=== PATIENT | male | born 1960 | race Caucasian/White ===

== ENCOUNTER 2017-05-22 13:47 | Emergency (ER) | payer MEDICARE ==
[~2017-05-22] VITALS: Ht 180.3 cm; Wt 100.0 kg
[2017-05-22 13:48] VITALS: BP 176/98; PULSE 86; RESP 16; TEMP 98.6; O2SAT 97
--- NOTE | 2017-05-22 14:22 | PD ---
HPI Chief Complaint: Cold / Flu Symptoms Time Seen by Provider: 14:19 Travel History International Travel<30 days: No Contact w/Intl Traveler<30days: No Traveled to known affect area: No History of Present Illness HPI 57-year-old male recently arriving here in [place] 2 weeks ago from [facility], presents the emergency department with increasing congestion, wheeze, and cough. Cold approximately 2 weeks ago for which he was treated with azithromycin with some improvement, however symptoms have worsened since last Tuesday. Patient denies fever but has had chills. His cough is somewhat productive, and worse at night. He denies significant sinus tenderness or pain. No significant sore throat. Patient has no history of COPD or asthma. Patient does however have a history of pneumonia in the past, and the need for albuterol when he was sick in the past. Appetite is normal. No abdominal complaints. Known drug allergies. PFSH Past Medical History Cardiovascular Problems: Yes Social History Alcohol Use: Yes Tobacco Use: No Substance Use: No Allergies-Medications (Allergen,Severity, Reaction): Coded Allergies: No Known Allergies (Unverified , 05/22/17) Reported Meds & Prescriptions Reported Meds & Active Scripts Active Ventolin Hfa 18 GM Inh (Albuterol Sulfate) 90 Mcg/Act Aer 2 Puff INH Q4-6H PRN Prednisone 20 Mg Tab 20 Mg PO BID 5 Days Levaquin (Levofloxacin) 750 Mg Tablet 750 Mg PO DAILY 10 Days Reported Percocet (Oxycodone-Acetaminophen) 10-325 mg Tab 1 Tab PO Q6H PRN Atorvastatin (Atorvastatin Calcium) 10 Mg Tab 10 Mg PO HS Gabapentin 300 Mg Cap 300 Mg PO TID Flexeril (Cyclobenzaprine HCl) 10 Mg Tab 10 Mg PO TID PRN Lisinopril-Hctz 20-12.5 mg Tab (Lisinopril/Hydrochlorothiazide) 20 Mg-12.5 Mg Tablet 1 Tab PO DAILY Review of Systems Except as stated in HPI: all other systems reviewed are Neg General / Constitutional: Positive: Chills, No: Fever Eyes: No: Diploplia, Blurred Vision, Photophobia, Drainage, Redness, Foreign Body Sensation, Pain, Tearing, Blind Spots, Visual changes, Blindness HENT: Positive: Rhinitis, Rhinorrhea, Congestion, No: Headaches, Vertigo, Lightheadedness, Sore Throat, Dental Difficulties, Earache Cardiovascular: No: Chest Pain or Discomfort Respiratory: Positive: Cough, Shortness of Breath, Wheezing, No: Sneezing, Orthopnea, Hemoptysis, Stridor, Night Sweats, Pleuritic Pain Gastrointestinal: No: Nausea, Vomiting, Diarrhea, Abdominal Pain Genitourinary: No: Dysuria Musculoskeletal: No: Pain Skin: No Rash Neurologic: No: Weakness Psychiatric: No: Depression Endocrine: No: Polydipsia Hematologic/Lymphatic: No: Easy Bruising Physical Exam Narrative GENERAL: Patient appears in no obvious distress. SKIN: Warm and dry. Normal color. Normal turgor. HEAD: Atraumatic. Normocephalic. EYES: Pupils equal and round. No scleral icterus. No injection or drainage. ENT: No nasal bleeding or discharge. Mucous membranes pink and moist. NECK: Trachea midline. No JVD. CARDIOVASCULAR: Regular rate and rhythm. RESPIRATORY: No accessory muscle use. Diffuse wheezes and rales to auscultation. Breath sounds equal bilaterally. GASTROINTESTINAL: Abdomen soft, non-tender, nondistended. Hepatic and splenic margins not palpable. MUSCULOSKELETAL: Extremities without clubbing, cyanosis, or edema. No obvious deformities. NEUROLOGICAL: Awake and alert. No obvious cranial nerve deficits. Motor grossly within normal limits. Five out of 5 muscle strength in the arms and legs. Normal speech. PSYCHIATRIC: Appropriate mood and affect; insight and judgment normal. Data Data Last Documented VS Vital Signs Date Time Temp Pulse Resp B/P (MAP) Pulse Ox O2 Delivery O2 Flow Rate FiO2 05/22/17 13:48 98.6 86 16 176/98 (124) 97 Orders Orders Chest, Single Ap (05/22/17 14:22) Prednisone (Deltasone) (05/22/17 14:30) Albuterol-Ipratropium Neb (Duoneb Neb) (05/22/17 14:30) Ceftriaxone Inj (Rocephin Inj) (05/22/17 14:30) Azithromycin (Zithromax) (05/22/17 14:30) Lidocaine 1% Inj (50 Ml) (Xylocaine 1% I (05/22/17 14:45) Lidocaine 1% Inj (Xylocaine 1% Inj) (05/22/17 15:15) MDM Medical Decision Making Medical Screen Exam Complete: Yes Emergency Medical Condition: Yes Differential Diagnosis Bronchitis. Wheezing. Pneumonia. Narrative Course Patient is medically stable at time of exam Chest x-ray ordered. DuoNeb 1 ordered. 40 mg prednisone given by mouth. Patient given 500 mg azithromycin by mouth. Chest x-ray shows left lower lobe pneumonia. Vital signs seemed to be stable for discharge. Patient will be treated with Levaquin 750 daily for the next 10 days as he was arty treated with azithromycin. Patient also given prednisone 20 mg twice a day 5 days. Patient also given albuterol metered-dose inhaler 2 puffs every 4-6 hours when necessary cough and wheeze. Patient is to rest and push fluids and follow-up with local primary care physician or return to emergency Department with worsening symptoms if necessary. Diagnosis Primary Impression: Left lower lobe pneumonia Qualified Codes: J18.1 - Lobar pneumonia, unspecified organism Referrals: [facility] PO Patient Instructions: General Instructions, How to Use a Metered-Dose Inhaler ( ED), Prednisone (By mouth) Additional Instructions: 40 mg prednisone given by mouth. Patient given 500 mg azithromycin by mouth. Chest x-ray shows left lower lobe pneumonia. Vital signs seemed to be stable for discharge. Patient will be treated with Levaquin 750 daily for the next 10 days as he was arty treated with azithromycin. Patient also given prednisone 20 mg twice a day 5 days. Patient also given albuterol metered-dose inhaler 2 puffs every 4-6 hours when necessary cough and wheeze. Patient is to rest and push fluids and follow-up with local primary care physician or return to emergency Department with worsening symptoms if necessary. Med/Other Pt SpecificInfo: Prescription(s) given Scripts Albuterol 18 GM Inh (Ventolin Hfa 18 GM Inh) 90 Mcg/Act Aer 2 PUFF INH Q4-6H Y for SHORTNESS OF BREATH, #1 INHALER 0 Refills Prov: Evan Srinivasan MD 05/22/17 Prednisone (Prednisone) 20 Mg Tab 20 MG PO BID for 5 Days, #10 TAB 0 Refills Prov: Evan Srinivasan MD 05/22/17 Levofloxacin (Levaquin) 750 Mg Tablet 750 MG PO DAILY for Infection for 10 Days, #10 TAB 0 Refills Prov: Evan Srinivasan MD 05/22/17 Disposition: 01 DISCHARGE HOME Condition: Stable Scar John May 22, 2017 14:22
[2017-05-22] MEDS ORDERED: GABA300C5 PO (14:26)
[2017-05-22] MEDS ORDERED: LISI20TA PO (14:26)
[2017-05-22] MEDS ORDERED: ATOR10TA15 PO (14:26)
[2017-05-22] MEDS ORDERED: CYCL10TA PO (14:26)
[2017-05-22] MEDS ORDERED: PERC10TA27 PO (14:26)
[2017-05-22] MEDS ORDERED: RESP: ALBUTEROL 2.5 MG/IPRATROPIUM 0.5 MG NEB (SCH) INH ONE (14:30)
[2017-05-22] MEDS ORDERED: AZITHROMYCIN 250 MG TAB PO ONE (14:30)
[2017-05-22] MEDS ORDERED: predniSONE 20 MG TAB PO ONE (14:30)
[2017-05-22] MEDS ORDERED: LIDOCAINE HCL 1% 50 ML VIAL INFIL ONE (14:45)
[2017-05-22] MEDS ORDERED: LIDOCAINE HCL 1% 20 ML VIAL OTHER ONE (15:15)
--- NOTE | 2017-05-22 15:20 | RADRPT ---
EXAM DATE/TIME: 05/22/2017 15:07 [facility] COMPARISON: No previous studies available for comparison. INDICATIONS : Chest congestion, shortness of breath and chest pain. MEDICAL HISTORY : Hypercholesterolemia. Hypertension SURGICAL HISTORY : Hernia repair. ENCOUNTER: Initial ACUITY: 4 - 6 days PAIN SCORE: 4/10 LOCATION: Bilateral chest FINDINGS: A single view of the chest demonstrates patchy infiltrate left lower lobe. The cardiomediastinal con tours are unremarkable. Osseous structures are intact. CONCLUSION: Left lower lobe pneumonia. Isaac Guevara MD on May 22, 2017 at 15:18 Board Certified Radiologist. This report was verified electronically.
[2017-05-22] MEDS ORDERED: PRED20 PO (15:22)
[2017-05-22] MEDS ORDERED: VENTAER INH (15:22)
[2017-05-22] MEDS ORDERED: LEVA750T9 PO (15:22)
== END 2017-05-22 16:00 | disposition home or self-care (01) ==
LOC: NEPD 13:47
DX: J18.1 Lobar pneumonia, unspecified organism (principal); I10 Essential (primary) hypertension; E78.00 Pure hypercholesterolemia, unspecified; Z86.79 Personal history of other diseases of the circulatory system
CPT/HCPCS: 71045; 94664; 96372; 99284; J0696; J7512